=== PATIENT | female | born 1950 | race Caucasian/White ===

== ENCOUNTER 2021-03-23 14:32 | Emergency (ER) | payer MEDICARE, BC ==
[2021-03-23] MEDS ORDERED: Sodium Chloride 0.9% 10 ML Syringe FLUSH PRN (14:36)
[2021-03-23 15:15] LABS: CHLORIDE,CL 107 mmol/L (98-107); SODIUM,NA 142 mmol/L (136-145)
[2021-03-23 15:16] LABS: ANION GAP 14.6 meq/L (7-15)
--- NOTE | 2021-03-23 16:07 | EDM.PDOC ---
ED HPI GENERAL MEDICAL PROBLEM - General Chief Complaint: Chest Pain Stated Complaint: chest pain Time Seen by Provider: 03/23/21 14:36 Source of Information: Reports: Patient History Limitations: Reports: No Limitations - History of Present Illness INITIAL COMMENTS - FREE TEXT/NARRATIVE: Patient brought to ER from [facility] after presenting for chest pain. Pain started today while patient weeding garden. Sharp, left sided. Radiated to left arm and neck. Some diaphoresis and SOB sensation with it. Was given aspirin prior to transport. Also given Nitro. Pain resolved after Nitro. Has had similar pain in past but not as bad. Associated it with heartburn. Was on treadmill this morning and had no issue. Strong family history of [place] with both father and brother with MIs. Father was in his 50s. No previous diagnosis of CAD. 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 - Related Data Allergies Allergy/AdvReac Type Severity Reaction Status Date / Time No Known Drug Allergies Allergy Other Verified 03/23/21 16:11 Home Meds: Home Meds B-Complex with Vitamin C [B-Complex with C] 1 tab PO DAILY 03/23/21 [History] Cholecalciferol (Vitamin D3) [Vitamin D3] 2,000 unit PO DAILY 03/23/21 [History] Triamcinolone Acetonide [Oralone] 1 applic TOP ASDIRECTED 03/23/21 [History] atorvaSTATin [Lipitor] 20 mg PO DAILY 03/23/21 [History] Past Medical History HEENT History: Reports: Cataract, Hard of Hearing, Impaired Vision Cardiovascular History: Reports: High Cholesterol Gastrointestinal History: Reports: Other (See Below) Other Gastrointestinal History: occasional heartburn, takes prn OTC meds 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: Dermatologic History: Reports: Eczema - Past Surgical History HEENT Surgical History: Reports: Cataract Surgery GI Surgical History: Reports: Appendectomy Female Surgical History: Reports: Breast Biopsy, Section, Hysterectomy Dermatological Surgical History: Reports: None Social & Family History - Family History Cardiac: Reports: Bypass, CAD, [place] - Tobacco Use Tobacco Use Status *Q: Former Tobacco User Used Tobacco, but Quit: Yes Month/Year Tobacco Last Used: 1985 - Caffeine Use Caffeine Use: Reports: Coffee - Alcohol Use Alcohol Use History: Yes Alcohol Use Frequency: Socially - Recreational Drug Use Recreational Drug Use: No ED ROS GENERAL - Review of Systems Review Of Systems: See Below Constitutional: Reports: Diaphoresis HEENT: Reports: No Symptoms Respiratory: Reports: Shortness of Breath. Denies: Wheezing, Pleuritic Chest Pain, Cough, Sputum, Hemoptysis Cardiovascular: Reports: Chest Pain, Other (pain radiated to left neck and down left arm). Denies: Dyspnea on Exertion, Edema, Lightheadedness, Palpitations, Syncope GI/Abdominal: Reports: No Symptoms : Reports: No Symptoms Musculoskeletal: Reports: Other (acute left arm pain with the chest pain) Skin: Reports: No Symptoms Neurological: Reports: No Symptoms Psychiatric: Reports: No Symptoms Hematologic/Lymphatic: Reports: No Symptoms Immunologic: Reports: No Symptoms ED EXAM, GENERAL - Physical Exam Exam: See Below Exam Limited By: No Limitations General Appearance: Alert, WD/WN, No Apparent Distress Eye Exam: Bilateral Eye: EOMI, PERRL Ears: Normal External Exam, Hearing Grossly Normal Nose: No: Nasal Deformity, Nasal Swelling, Nasal Drainage Throat/Mouth: Normal Lips, Normal Voice, No Airway Compromise Head: Atraumatic, Normocephalic Neck: Normal Inspection, Supple, Non-Tender, Full Range of Motion. No: Carotid Bruit, Lymphadenopathy (L), Lymphadenopathy (R) Respiratory/Chest: No Respiratory Distress, Lungs Clear, Normal Breath Sounds, No Accessory Muscle Use, Chest Non-Tender Cardiovascular: Normal Peripheral Pulses, Regular Rate, Rhythm, No Murmur GI/Abdominal: Normal Bowel Sounds, Soft, Non-Tender, No Distention (Female) Exam: Deferred Rectal (Female) Exam: Deferred Back Exam: No: CVA Tenderness (L), CVA Tenderness (R), Muscle Spasm Extremities: Normal Inspection, Normal Capillary Refill Neurological: Alert, Oriented, Normal Cognition, Normal Gait, No Motor/Sensory Deficits Psychiatric: Normal Affect, Normal Mood Skin Exam: Warm, Dry, Intact, Normal Color #1 Interpretation EKG Date: 03/23/21 Time: 14:51 Rhythm: NSR Rate (Beats/Min): 65 Justice: Normal P-Wave: Present QRS: Normal ST-T: Normal QT: Normal #2 Interpretation EKG Date: 03/23/21 Time: 15:58 Rhythm: NSR Rate (Beats/Min): 62 Justice: Normal P-Wave: Present QRS: Normal ST-T: Normal QT: Normal Comparison: No Change Course - Vital Signs Last Recorded V/S: Last Vital Signs Temp 36.3 C 03/23/21 14:48 Pulse 78 03/23/21 16:18 Resp 15 03/23/21 16:18 BP 142/88 H 03/23/21 16:18 Pulse Ox 94 L 03/23/21 16:18 - Orders/Labs/Meds Orders: Active Orders 24 hr Category Date Time Status EKG Documentation Completion [RC] ASDIRECTED Care 03/23/21 14:37 Active EKG Documentation Completion [RC] ASDIRECTED Care 03/23/21 15:51 Active Chest 1V Frontal [CR] Stat Exams 03/23/21 14:37 Taken INR,PT,PROTHROMBIN TIME [COAG] Stat Lab 03/23/21 16:37 Ordered Heparin Sodium/0.45% NaCl [Heparin 25,000 Units in 1/2 Med 03/23/21 16:45 Ordered NS 500 ML] 500 ml IV TITRATE Sodium Chloride 0.9% [Saline Flush] Med 03/23/21 14:36 Active 10 ml FLUSH ASDIRECTED PRN Saline Lock Insert [OM.PC] Stat Oth 03/23/21 14:36 Ordered Medication Orders Sodium Chloride (Sodium Chloride 0.9% 10 Ml Syringe) 10 ml FLUSH ASDIRECTED PRN PRN Reason: Keep Vein Open Labs: Laboratory Tests 03/23/21 03/23/21 03/23/21 Range/Units 14:30 14:35 14:35 WBC 6.0 (4.0-10.2) K/uL RBC 4.47 (3.77-5.09) M/uL Hgb 14.5 (11.7-15.5) g/dL Hct 41.7 (34.0-46.0) % MCV 93.3 (84.0-98.0) fL MCH 32.4 (28.2-33.3) pg MCHC 34.8 (31.7-36.0) g/dL RDW 12.5 (11.2-14.1) % Plt Count 226 (150-350) K/uL Neut % (Auto) 61.7 (45.0-80.0) % Lymph % (Auto) 29.6 (10.0-50.0) % [place] % (Auto) 7.7 (2.0-14.0) % Eos % (Auto) 0.7 (0.0-5.0) % Baso % (Auto) 0.3 (0.0-2.0) % Neut # (Auto) 3.69 (1.40-7.00) K/uL Lymph # (Auto) 1.77 (0.50-3.50) K/uL [place] # (Auto) 0.46 (0.00-1.00) K/uL Eos # (Auto) 0.04 (0.00-0.50) K/uL Baso # (Auto) 0.02 (0.00-0.20) K/uL D-Dimer, Quantitative 151 (0-400) ng/mL Sodium 142 (136-145) mmol/L Potassium 3.3 L (3.5-5.1) mmol/L Chloride 107 (98-107) mmol/L Carbon Dioxide 23.7 (21.0-32.0) mmol/L Anion Gap 14.6 (7-15) meq/L BUN 12 (7-18) mg/dL Creatinine 1.20 H (0.51-1.17) mg/dL Est Cr Clr Drug Dosing 42.42 mL/min Estimated GFR (MDRD) 44 mL/min Glucose 115 H (70-99) mg/dL Lactic Acid (0.4-2.0) mmol/L Calcium 9.2 (8.5-10.1) mg/dL Magnesium 2.0 (1.8-2.4) mg/dL Total Bilirubin 0.6 (0.2-1.0) mg/dL AST 21 (15-37) U/L ALT 30 (12-78) U/L Alkaline Phosphatase 83 (46-116) IU/L Troponin I High Sens < 4 (<=51) ng/L NT-Pro-B Natriuret Pep 97 (0-125) pg/mL Total Protein 6.7 (6.4-8.2) g/dL Albumin 3.8 (3.4-5.0) g/dL Specimen Type Urine Color Urine Appearance Urine pH (5.0-9.0) Ur Specific [place] (1.005-1.030) Urine Protein (NEGATIVE) mg/dL Urine Glucose (UA) (NEGATIVE) mg/dL Urine Ketones (NEGATIVE) mg/dL Urine Occult Blood (NEGATIVE) Urine Nitrite (NEGATIVE) Urine Bilirubin (NEGATIVE) Urine Urobilinogen (0.2-1.0) E.U./dL Ur Leukocyte Esterase (NEGATIVE) Urine RBC /HPF Urine WBC /HPF Ur Epithelial Cells /LPF Urine Bacteria (NONE TO FEW) /HPF 03/23/21 03/23/21 Range/Units 14:35 14:36 WBC (4.0-10.2) K/uL RBC (3.77-5.09) M/uL Hgb (11.7-15.5) g/dL Hct (34.0-46.0) % MCV (84.0-98.0) fL MCH (28.2-33.3) pg MCHC (31.7-36.0) g/dL RDW (11.2-14.1) % Plt Count (150-350) K/uL Neut % (Auto) (45.0-80.0) % Lymph % (Auto) (10.0-50.0) % [place] % (Auto) (2.0-14.0) % Eos % (Auto) (0.0-5.0) % Baso % (Auto) (0.0-2.0) % Neut # (Auto) (1.40-7.00) K/uL Lymph # (Auto) (0.50-3.50) K/uL [place] # (Auto) (0.00-1.00) K/uL Eos # (Auto) (0.00-0.50) K/uL Baso # (Auto) (0.00-0.20) K/uL D-Dimer, Quantitative (0-400) ng/mL Sodium (136-145) mmol/L Potassium (3.5-5.1) mmol/L Chloride (98-107) mmol/L Carbon Dioxide (21.0-32.0) mmol/L Anion Gap (7-15) meq/L BUN (7-18) mg/dL Creatinine (0.51-1.17) mg/dL Est Cr Clr Drug Dosing mL/min Estimated GFR (MDRD) mL/min Glucose (70-99) mg/dL Lactic Acid 1.4 (0.4-2.0) mmol/L Calcium (8.5-10.1) mg/dL Magnesium (1.8-2.4) mg/dL Total Bilirubin (0.2-1.0) mg/dL AST (15-37) U/L ALT (12-78) U/L Alkaline Phosphatase (46-116) IU/L Troponin I High Sens (<=51) ng/L NT-Pro-B Natriuret Pep (0-125) pg/mL Total Protein (6.4-8.2) g/dL Albumin (3.4-5.0) g/dL Specimen Type Urinblad Urine Color Yellow Urine Appearance Clear Urine pH 7.0 (5.0-9.0) Ur Specific [place] 1.015 (1.005-1.030) Urine Protein Negative (NEGATIVE) mg/dL Urine Glucose (UA) Negative (NEGATIVE) mg/dL Urine Ketones Negative (NEGATIVE) mg/dL Urine Occult Blood Negative (NEGATIVE) Urine Nitrite Negative (NEGATIVE) Urine Bilirubin Negative (NEGATIVE) Urine Urobilinogen 0.2 (0.2-1.0) E.U./dL Ur Leukocyte Esterase Negative (NEGATIVE) Urine RBC 0-5 /HPF Urine WBC 0-5 /HPF Ur Epithelial Cells Few /LPF Urine Bacteria Rare (NONE TO FEW) /HPF Meds: Medications Generic Name Dose Route Start Last Admin Trade Name Freq PRN Reason Stop Dose Admin Sodium Chloride 10 ml 03/23/21 14:36 Sodium Chloride 0.9% 10 Ml Syringe FLUSH ASDIRECTED PRN Keep Vein Open Discontinued Medications Generic Name Dose Route Start Last Admin Trade Name Freq PRN Reason Stop Dose Admin Heparin Sodium (Porcine) 0 units 03/23/21 16:33 03/23/21 16:36 Heparin Sodium 5,000 Units/Ml Vial IVPUSH 03/23/21 16:34 5,000 units .BOLUS ONE Administration Protocol Nitroglycerin 0.4 mg 03/23/21 16:02 03/23/21 16:11 Nitroglycerin 0.4 Mg Tab.Sl SL 03/23/21 16:03 0.4 mg ONETIME ONE Administration - Radiology Interpretation Free Text/Narrative:: Chest xray unremarkable for acute changes - Re-Assessments/Exams Free Text/Narrative Re-Assessment/Exam: 03/23/21 16:21 Patient pain free by time of arrival. As noted in HPI she received Nitro and 324mg baby ASA in [place] prior to EMS transfer. Chest pain protocol initiated. CBC/Chem/DDimer/BNP/Trop/MG all overall unremarkable. Cr 1.2 K 3.3 Single PO dose potassium given. EKGs unremarkable but when compared to EKG performed in [place] there was some nonspecific changes in S-T leads II, AVF not present in our EKGs. Chest pain started to return and patient received a nitro SL here in our facility. Again, chest pain improved. Call placed to [facility]. Given patient's pattern of symptoms, resolution with nitro, and strong family CAD history, transfer to their facility was arranged with accepting hospitalist . Heparin bolus and drip ordered prior to transfer. Departure - Departure Time of Disposition: 17:00 Disposition: DC/Tfer to Acute Hospital 02 Condition: Good Clinical Impression: Hypokalemia Chest pain Qualifiers: Chest pain type: unspecified Qualified Code(s): R07.9 - Chest pain, unspecified - Discharge Information *PRESCRIPTION DRUG MONITORING PROGRAM REVIEWED*: Not Applicable *COPY OF PRESCRIPTION DRUG MONITORING REPORT IN PATIENT TOBI: Not Applicable Referrals: Mary Beth Spivey NP [Primary Care Provider] - Sepsis Event Note (ED) - Evaluation Sepsis Screening Result: No Definite Risk - Focused Exam Vital Signs: Vital Signs Temp Pulse Resp BP BP Pulse Ox 03/23/21 16:18 78 15 142/88 H 94 L 03/23/21 16:11 103/88 03/23/21 15:01 73 12 167/77 H 96 03/23/21 14:48 36.3 C 74 18 146/75 H 98 - My Orders Last 24 Hours: My Active Orders 03/23/21 14:36 Sodium Chloride 0.9% [Saline Flush] 10 ml FLUSH ASDIRECTED PRN Saline Lock Insert [OM.PC] Stat 03/23/21 14:37 EKG Documentation Completion [RC] ASDIRECTED Chest 1V Frontal [CR] Stat 03/23/21 15:51 EKG Documentation Completion [RC] ASDIRECTED 03/23/21 16:37 INR,PT,PROTHROMBIN TIME [COAG] Stat 03/23/21 16:45 Heparin Sodium/0.45% NaCl [Heparin 25,000 Units in 1/2 NS 500 ML] 500 ml IV TITRATE - Assessment/Plan Last 24 Hours: My Active Orders 03/23/21 14:36 Sodium Chloride 0.9% [Saline Flush] 10 ml FLUSH ASDIRECTED PRN Saline Lock Insert [OM.PC] Stat 03/23/21 14:37 EKG Documentation Completion [RC] ASDIRECTED Chest 1V Frontal [CR] Stat 03/23/21 15:51 EKG Documentation Completion [RC] ASDIRECTED 03/23/21 16:37 INR,PT,PROTHROMBIN TIME [COAG] Stat 03/23/21 16:45 Heparin Sodium/0.45% NaCl [Heparin 25,000 Units in 1/2 NS 500 ML] 500 ml IV TITRATE
[2021-03-23] MEDS: Nitroglycerin 0.4 MG Tab.SL SL ONE (16:11)
[2021-03-23] MEDS: Heparin Sodium 5,000 Units/ML Vial IVPUSH ONE (16:36)
[2021-03-23] MEDS: Heparin Sodium/0.45% NaCl 500 ML IV SCH (16:45)
[2021-03-23] MEDS: Potassium Chloride 10 MEQ Tab.ER PO ONE (16:56)
[2021-03-23] MEDS: LORazepam 1 MG Tab PO ONE (16:59)
[2021-03-23] MEDS ORDERED: Sodium Chloride 0.9% 500 ML IV SCH (17:00)
== END 2021-03-23 17:30 ==
LOC: LL.ED 14:32
DX: R07.9 Chest pain, unspecified (principal); E87.6 Hypokalemia; E78.00 Pure hypercholesterolemia, unspecified; Z87.891 Personal history of nicotine dependence; Z79.899 Other long term (current) drug therapy
CPT/HCPCS: 36415; 71045; 80053; 81001; 83605; 83735; 83880; 84484; 85025; 85379; 85610; 93005; 93010; 96365; 99284; 99285-25; A9270-GY; J1644